=== PATIENT | female | born 1930 | race Caucasian/White ===

== ENCOUNTER 2019-05-14 18:19 | Inpatient (IN) | payer MEDICARE ==
[2019-05-14 19:41] LABS: #Basophils 0.1 thou/uL (0.0-0.2); #Eosinphils 0.3 thou/uL (0.0-0.7); #Lymphocytes 1.3 thou/uL (1.20-3.40); #Monocytes 0.4 thou/uL (0.11-0.59); #Neutrophils 3.2 thou/uL (1.40-6.50); %Eosinophils 6.1 % (0.0-10.0); %Lymphocytes 24.4 % (21.0-51.0); %Neutrophils 60.6 % (42.0-75.0); Hemoglobin 10.4 g/dL (12.0-16.0); Mean Corpuscular HGB CONC 32.6 g/dL (32.0-36.0); Mean Corpuscular Volume 92.1 fL (78.0-98.0); Platelet Count 272 thou/uL (130-400); RBC Distribution Width 13.6 % (11.5-14.5); Red Blood Cell (RBC) Count 3.47 mill/uL (4.20-5.40); White Blood Cell (WBC) Count 5.2 thou/uL (4.8-10.8)
[2019-05-14 19:56] LABS: ALT (SGPT) 15 U/L (8-55); AST (SGOT) 17 U/L (5-34); Albumin 3.3 g/dL (3.4-4.8); Alkaline Phosphatase 57 U/L (40-110); Anion Gap 14 mmol/L (10-20); BUN (Urea Nitrogen) 11 mg/dL (9.8-20.1); Bilirubin, Total 0.5 mg/dL (0.2-1.2); Calc. Creatinine Clearance 0 mL/min (70-130); Calcium 8.9 mg/dL (7.8-10.44); Carbon Dioxide 24 mmol/L (23-31); Chloride 109 mmol/L (98-107); Estimated GFR-MDRD 66; Globulin 2.3 g/dL (2.4-3.5); Glucose 144 mg/dL (83-110); Potassium 3.8 mmol/L (3.5-5.1); Protein, Total 5.6 g/dL (6.0-8.3); Sodium 143 mmol/L (136-145)
[2019-05-14] MEDS: Sodium Chloride 0.9% 10 ML ONE (20:55)
[2019-05-14] MEDS: Famotidine 20 MG TAB PO SCH (20:56)
[2019-05-14] MEDS: Gabapentin 100 MG CAP PO SCH (20:56)
[2019-05-14] MEDS: Atorvastatin Calcium 40 MG TAB PO SCH (20:56)
[2019-05-14] MEDS: Vancomycin HCl 1 GM in Sodium Chloride 0.9% 250 ML 250 ML IVPB SCH (20:56)
[2019-05-14] MEDS: Enoxaparin Sodium 30 MG/0.3 ML SYRINGE SC SCH (20:58)
[2019-05-14] MEDS ORDERED: rOPINIRole HCl 0.5 MG TAB PO SCH (21:00)
[2019-05-14] MEDS ORDERED: PARoxetine 20 MG TAB PO SCH (21:00)
--- NOTE | 2019-05-14 21:01 | HP ---
HISTORY OF PRESENT ILLNESS: The patient is a very pleasant 89-year-old white female, who has recently been discharged from [facility] and then [facility] after a diagnosis of endocarditis with aortic vegetations in a patient with methicillin-resistant Staph bacteremia. She has been started on vancomycin 1 g IV daily and has been continuing this at the acute care hospital and the rehab, but now is unable to maintain any antibiotics at home and is admitted to the [facility] to continue her IV vancomycin. She has underlying comorbidities of mild dementia and coronary artery disease, status post coronary angioplasty with a chronic left bundle branch block. However, she has only minimal decreased ejection fraction of 45% with no evidence of decompensated congestive heart failure. She has had a recent urinary tract infection and sepsis syndrome when the MRSA bacteremia was found. She has been cooperating with therapy and has been getting stronger, but her dementia has somewhat limited her improvement. MEDICATIONS: At this time include; 1. Atorvastatin 40 mg daily. 2. Clopidogrel 75 daily. 3. Depakote 500 mg daily. 4. Donepezil 5 mg daily. 5. Lovenox 30 mg subcu daily. 6. Florastor 250 mg daily. 7. Spironolactone 25 mg daily. 8. Trazodone 50 mg nightly. 9. Vancomycin 1 g IV piggyback nightly. ALLERGIES: SHE HAS A HISTORY OF PENICILLIN AND SULFA ALLERGIES. SOCIAL HISTORY: She lives with her daughter and granddaughter. She is a nonsmoker, nondrinker. REVIEW OF SYSTEMS: HEENT: She denies headaches, dizziness, change in vision or hearing, hoarseness, or dysphagia. PULMONARY: She denies cough, sputum production, pneumonia, asthma, or tuberculosis. CARDIOVASCULAR: She denies chest pain, orthopnea, paroxysmal nocturnal dyspnea, or edema. GASTROINTESTINAL: She denies nausea, vomiting, diarrhea, constipation, or abdominal pain, but did apparently have some diarrhea earlier today. GENITOURINARY: She has had some dysuria in the past, but none recently. She has above-mentioned recent urinary tract infection. She is incontinent of urine. MUSCULOSKELETAL: She denies pain or stiffness in her back, arms, and legs. NEUROLOGIC: She denies localized numbness or weakness in arms or extremities. PHYSICAL EXAMINATION: GENERAL: The patient is an elderly white female, lying in bed, eating supper, alert and oriented to person, place, and time and in no distress. VITAL SIGNS: Showed to have a temperature 97.9; pulse 51; respirations 18; O2 saturations 96% on room air; blood pressure 189/77, and decreased to 160/68 later. HEENT: Pupils are equal, round, reactive to light and accommodation. Sclerae anicteric. Conjunctivae pale. Oral mucous membranes are well hydrated. NECK: Supple. No nodes or masses. JVP is not elevated. LUNGS: Clear. CARDIAC: Showed regular rhythm. ABDOMEN: Soft and nontender. SKIN/EXTREMITIES: Show no edema, clubbing, or cyanosis. NEUROLOGIC: Shows no focal findings. LABORATORY DATA: Still pending. ASSESSMENT: 1. The patient is 89-year-old white female with history of coronary artery disease, status post coronary artery angioplasty with chronic left bundle branch block and significant bradycardia in the 40s and 50s, but with no symptoms and no indication for pacemaker because of this. 2. 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 Monitoring renal function until the full 6-week course was given, the date to be determined. 3. Mild dementia, worsened recently with inability of family to care for the patient at this time on donepezil. 4. New onset of diarrhea and we will check for Clostridium difficile. 5. Dementia, on donepezil and we will evaluate the long-term placement if can request. Job ID: [id number]
[2019-05-14] MEDS: traZODone HCl 50 MG TAB PO SCH (21:03)
[2019-05-15] MEDS: Saccharomyces boulardii 250 MG CAP PO SCH (08:11)
[2019-05-15] MEDS: PARoxetine 20 MG TAB PO SCH (08:12)
[2019-05-15] MEDS: Clopidogrel Bisulfate 75 MG TAB PO SCH (08:12)
[2019-05-15] MEDS: Spironolactone 25 MG TAB PO SCH (08:13)
[2019-05-15] MEDS: Gabapentin 100 MG CAP PO SCH ×3 (08:13→20:58)
[2019-05-15] MEDS: Loratadine 10 MG TAB PO SCH (08:13)
[2019-05-15] MEDS: Famotidine 20 MG TAB PO SCH ×2 (08:13→20:58)
[2019-05-15] MEDS ORDERED: DIVALPROEX SODIUM 500 MG PO SCH (09:00)
[2019-05-15] MEDS ORDERED: traZODone HCl 50 MG TAB PO SCH (09:00)
[2019-05-15] MEDS ORDERED: DONEPEZIL HCL 23 MG PO SCH (09:00)
[2019-05-15] MEDS ORDERED: Lisinopril 10 MG TAB PO SCH (11:45)
[2019-05-15] MEDS: Vancomycin HCl 1 GM in Sodium Chloride 0.9% 250 ML 250 ML IVPB SCH (20:55)
[2019-05-15] MEDS: Sodium Chloride 0.9% 10 ML ONE (20:56)
[2019-05-15] MEDS: Enoxaparin Sodium 30 MG/0.3 ML SYRINGE SC SCH (20:56)
[2019-05-15] MEDS: traZODone HCl 50 MG TAB PO SCH (20:57)
[2019-05-15] MEDS: Atorvastatin Calcium 40 MG TAB PO SCH (20:57)
[2019-05-15] MEDS ORDERED: Prevnar 13-Val Conj/PF 0.5 ML SYRINGE IM ONE (21:00)
[2019-05-15] MEDS ORDERED: FLU VACC QS2019-20(6MOS UP)/PF 60 MCG/0.5 ML SYRINGE IM ONE (21:00)
[2019-05-16] MEDS ORDERED: Lisinopril 10 MG TAB PO SCH ×2 (09:00→21:00)
[2019-05-16] MEDS: Famotidine 20 MG TAB PO SCH ×2 (10:06→21:39)
[2019-05-16] MEDS: PARoxetine 20 MG TAB PO SCH (10:06)
[2019-05-16] MEDS: Saccharomyces boulardii 250 MG CAP PO SCH (10:07)
[2019-05-16] MEDS: Gabapentin 100 MG CAP PO SCH ×3 (10:07→21:39)
[2019-05-16] MEDS: Loratadine 10 MG TAB PO SCH (10:07)
[2019-05-16] MEDS: Spironolactone 25 MG TAB PO SCH (10:07)
[2019-05-16] MEDS: Clopidogrel Bisulfate 75 MG TAB PO SCH (10:07)
[2019-05-16 20:49] LABS: Vancomycin, Trough 11.2 ug/mL
[2019-05-16] MEDS: Vancomycin HCl 1 GM in Sodium Chloride 0.9% 250 ML 250 ML IVPB SCH (21:35)
[2019-05-16] MEDS: Atorvastatin Calcium 40 MG TAB PO SCH (21:39)
[2019-05-16] MEDS: traZODone HCl 50 MG TAB PO SCH (21:40)
[2019-05-16] MEDS: Enoxaparin Sodium 30 MG/0.3 ML SYRINGE SC SCH (21:40)
[2019-05-17] MEDS: Famotidine 20 MG TAB PO SCH ×2 (08:07→20:11)
[2019-05-17] MEDS: Saccharomyces boulardii 250 MG CAP PO SCH (08:07)
[2019-05-17] MEDS: Clopidogrel Bisulfate 75 MG TAB PO SCH (08:07)
[2019-05-17] MEDS: Spironolactone 25 MG TAB PO SCH (08:07)
[2019-05-17] MEDS: Lisinopril 10 MG TAB PO SCH (08:08)
[2019-05-17] MEDS: Gabapentin 100 MG CAP PO SCH ×3 (08:09→20:12)
[2019-05-17] MEDS: PARoxetine 20 MG TAB PO SCH (08:09)
[2019-05-17] MEDS: Loratadine 10 MG TAB PO SCH (08:09)
--- NOTE | 2019-05-17 08:37 | PRG ---
DATE OF SERVICE: 05/15/2019 SUBJECTIVE: The patient feels well. No complaints, walking in the [place], having some shortness of breath with exercise, but no chest pain or palpitations. LABORATORIES: Done yesterday reveal sodium 1.3, potassium 3.8, chloride 109, bicarb 24, BUN 11, creatinine 0.62, glucose , protein 5.6, albumin 3.3, globulin 2.3. White count 5200, hematocrit 31 hemoglobin 10. OBJECTIVE: VITAL SIGNS: Shows her temperature is 97.8 pulse 51, respirations 18, O2 sats 94% on room air, blood pressure 171/71. LUNGS: Clear. CARDIAC: Shows regular rhythm. ABDOMEN: Soft and nontender. ASSESSMENT: 1. 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 Vancomycin 1 g daily with weekly vancomycin trough levels. Appears to be stable with no evidence of decompensated congestive heart failure. 2. Persistent significant bradycardia in the 40s and 50s, but with no symptoms and monitor closely. 3. Diarrhea appears to have resolved and Clostridium difficile has been negative as it was note done as this was a formed stool at the time it was done. 4. Deconditioning, improving daily and walking with therapy, but the family states that they still feel they cannot care for her because of her dementia. 5. Dementia appears to be and we will discuss custodial placement with family and with [facility]. Job ID: [id number]
--- NOTE | 2019-05-17 08:44 | PRG ---
DATE OF SERVICE: 05/16/2019 SUBJECTIVE: The patient feels well and walking with therapy. Has no complaints of shortness of breath, chest pain or palpitations. OBJECTIVE: VITAL SIGNS: Shows blood pressure is elevated somewhat to 173/72, pulse is stable at 51, temperature is 96.3, pulse is 80. LUNGS: Clear. CARDIAC: Shows regular rhythm. ABDOMEN: Soft and nontender. No masses or organomegaly. SKIN/EXTREMITIES: Show no edema, clubbing, cyanosis. LABORATORY DATA: Vancomycin trough level has returned subtherapeutic at 11.2 with a range of 15-25 daily. ASSESSMENT: 1. Staphylococcus endocarditis, on vancomycin with subtherapeutic level. We will increase to 1.25 g daily. 2. Hypertension labile, but not controlled and we will increase lisinopril to 20 mg daily tomorrow and give extra dose of lisinopril 10 mg at night. 3. Dementia stable. Cooperating with therapy. 4. Deconditioning, improving with therapy and we will continue. PLAN: 1. Increase vancomycin to 1.25 daily. 2. Increase lisinopril to 20 daily. 3. Continue PT/OT. 4. Continue to monitor bradycardia for symptoms. Job ID: [id number]
--- NOTE | 2019-05-17 09:27 | PRG ---
DATE OF SERVICE: 05/17/2019 SUBJECTIVE: The patient feels well, lying in bed, resting with no shortness of breath. Chest pain has been cooperating with therapy. OBJECTIVE: VITAL SIGNS: Temperature 97.6, pulse 50, respirations 16, O2 sats 94% on room air, blood pressure 147/65. LUNGS: Clear. CARDIAC: Regular rhythm. ABDOMEN: Soft, nontender. SKIN/EXTREMITIES: No edema, clubbing, or cyanosis. ASSESSMENT: 1. Staph endocarditis, on subtherapeutic vancomycin 1 g daily, recently increased to 1.25 g daily. 2. Hypertension, labile, controlled, but improved today, on increased lisinopril to 20 mg daily. We will continue to monitor. 3. Deconditioning, cooperating well with PT and improving daily. 4. Asymptomatic bradycardia. We will monitor for symptoms. Job ID: [id number]
[2019-05-17] MEDS: Enoxaparin Sodium 30 MG/0.3 ML SYRINGE SC SCH (20:11)
[2019-05-17] MEDS: Atorvastatin Calcium 40 MG TAB PO SCH (20:11)
[2019-05-17] MEDS: traZODone HCl 50 MG TAB PO SCH (20:12)
[2019-05-17] MEDS: Vancomycin HCl 750 MG in Sodium Chloride 0.9% 250 ML 250 ML IVPB SCH (20:43)
[2019-05-17] MEDS: Vancomycin HCl 500 MG in Sodium Chloride 0.9% 100 ML IVPB SCH (20:44)
[2019-05-18] MEDS: Saccharomyces boulardii 250 MG CAP PO SCH (08:04)
[2019-05-18] MEDS: Famotidine 20 MG TAB PO SCH ×2 (08:04→22:06)
[2019-05-18] MEDS: Spironolactone 25 MG TAB PO SCH (08:05)
[2019-05-18] MEDS: PARoxetine 20 MG TAB PO SCH (08:05)
[2019-05-18] MEDS: Loratadine 10 MG TAB PO SCH (08:05)
[2019-05-18] MEDS: Lisinopril 10 MG TAB PO SCH (08:06)
[2019-05-18] MEDS: Gabapentin 100 MG CAP PO SCH ×3 (08:06→22:06)
[2019-05-18] MEDS: Clopidogrel Bisulfate 75 MG TAB PO SCH (09:10)
[2019-05-18] MEDS: Enoxaparin Sodium 30 MG/0.3 ML SYRINGE SC SCH (22:06)
[2019-05-18] MEDS: Atorvastatin Calcium 40 MG TAB PO SCH (22:06)
[2019-05-18] MEDS: traZODone HCl 50 MG TAB PO SCH (22:06)
[2019-05-18] MEDS: Vancomycin HCl 500 MG in Sodium Chloride 0.9% 100 ML IVPB SCH (22:08)
[2019-05-18] MEDS: Vancomycin HCl 750 MG in Sodium Chloride 0.9% 250 ML 250 ML IVPB SCH (22:08)
[2019-05-19 07:21] LABS: #Basophils 0.1 thou/uL (0.0-0.2); #Eosinphils 0.4 thou/uL (0.0-0.7); #Lymphocytes 1.4 thou/uL (1.20-3.40); #Monocytes 0.4 thou/uL (0.11-0.59); #Neutrophils 2.4 thou/uL (1.40-6.50); %Basophils 2.2 % (0.0-1.0); %Eosinophils 8.2 % (0.0-10.0); %Lymphocytes 29.7 % (21.0-51.0); %Monocytes 8.7 % (0.0-10.0); %Neutrophils 51.2 % (42.0-75.0); Hemoglobin 9.7 g/dL (12.0-16.0); Mean Corpuscular HGB CONC 30.7 g/dL (32.0-36.0); Mean Corpuscular Hemoglobin 29.6 pg (27.0-31.0); Mean Corpuscular Volume 96.4 fL (78.0-98.0); Mean Platelet Volume 6.5 fL (7.4-10.4); Platelet Count 290 thou/uL (130-400); RBC Distribution Width 13.7 % (11.5-14.5); Red Blood Cell (RBC) Count 3.27 mill/uL (4.20-5.40); White Blood Cell (WBC) Count 4.7 thou/uL (4.8-10.8)
[2019-05-19 07:35] LABS: ALT (SGPT) 8 U/L (8-55); AST (SGOT) 13 U/L (5-34); Albumin 3.2 g/dL (3.4-4.8); Alkaline Phosphatase 48 U/L (40-110); Anion Gap 13 mmol/L (10-20); BUN (Urea Nitrogen) 15 mg/dL (9.8-20.1); Bilirubin, Total 0.4 mg/dL (0.2-1.2); Calc. Creatinine Clearance 47 mL/min (70-130); Calcium 8.3 mg/dL (7.8-10.44); Carbon Dioxide 20 mmol/L (23-31); Chloride 112 mmol/L (98-107); Estimated GFR-MDRD 70; Globulin 2.2 g/dL (2.4-3.5); Glucose 87 mg/dL (83-110); Potassium 4.1 mmol/L (3.5-5.1); Protein, Total 5.4 g/dL (6.0-8.3); Sodium 141 mmol/L (136-145)
--- NOTE | 2019-05-19 08:33 | PRG ---
DATE OF SERVICE: 05/18/2019 SUBJECTIVE: The patient lying in the bed, resting. No complaints. She has had a nice weekend with no shortness of breath, chest pain, and has had no increased confusion, at stable mild dementia. OBJECTIVE: Shows temperature is 97.2, pulse 64, respirations 20, O2 sats 96% on room air, blood pressure is 189/76, but was 136/69 previously and had been variable with increase in the afternoon the last several days. She is on lisinopril 20 mg in the morning only and we will add amlodipine to this every morning also. ASSESSMENT: 1. Staph endocarditis with aortic valve vegetations, doing well on vancomycin with last level subtherapeutic with new level pending tomorrow after increased dose. 2. Hypertension with persistent p.m. high elevation. We will add amlodipine 5 mg every morning. 3. Mild dementia, which appears to be stable, not limiting therapy and cooperating well with nurses. 4. Deconditioning, improving. 5. Bradycardia appears to be stable in the 50s and asymptomatic. We will continue to monitor. Job ID: [id number]
--- NOTE | 2019-05-19 08:51 | PRG ---
DATE OF SERVICE: 05/19/2019 SUBJECTIVE: The patient feels well. No complaints. Slept well through the night, cooperating well with therapy. No shortness of breath or chest pain. OBJECTIVE: Shows her blood pressure is still elevated at 189/76, but is being started on amlodipine this morning. Temperature is 97, pulse 64, respirations 20, O2 sats 96% on room air. LABORATORY DATA: Laboratory this morning showed a white count of 4,700, hematocrit 31, hemoglobin 9. Chemistries are pending. Lungs are clear. Cardiac examination shows regular rhythm. Vancomycin trough is pending this afternoon. ASSESSMENT: 1. Resolving methicillin-resistant Staph endocarditis with vegetations on aortic valve with no evidence of decompensation, but with subtherapeutic vancomycin level being repeated today. 2. Stable dementia. 3. Mild deconditioning, improving daily. PLAN: 1. Continue PT, OT. 2. Continue vancomycin 750 mg daily and check trough today. 3. Add amlodipine 5 mg this morning and monitor blood pressure closely. Job ID: [id number]
[2019-05-19] MEDS: PARoxetine 20 MG TAB PO SCH (09:10)
[2019-05-19] MEDS: Saccharomyces boulardii 250 MG CAP PO SCH (09:10)
[2019-05-19] MEDS: Spironolactone 25 MG TAB PO SCH (09:10)
[2019-05-19] MEDS: Lisinopril 10 MG TAB PO SCH (09:11)
[2019-05-19] MEDS: Famotidine 20 MG TAB PO SCH ×2 (09:13→21:10)
[2019-05-19] MEDS: Loratadine 10 MG TAB PO SCH (09:13)
[2019-05-19] MEDS: Amlodipine 5 MG TAB PO SCH (09:14)
[2019-05-19] MEDS: Gabapentin 100 MG CAP PO SCH ×3 (09:16→21:09)
[2019-05-19] MEDS: Clopidogrel Bisulfate 75 MG TAB PO SCH (09:16)
[2019-05-19] MEDS ORDERED: Amlodipine 5 MG TAB PO SCH (16:00)
[2019-05-19] MEDS: traZODone HCl 50 MG TAB PO SCH (21:09)
[2019-05-19] MEDS: Atorvastatin Calcium 40 MG TAB PO SCH (21:09)
[2019-05-19] MEDS: Vancomycin HCl 750 MG in Sodium Chloride 0.9% 250 ML 250 ML IVPB SCH (21:11)
[2019-05-19] MEDS: Enoxaparin Sodium 30 MG/0.3 ML SYRINGE SC SCH (21:11)
[2019-05-19] MEDS: Vancomycin HCl 500 MG in Sodium Chloride 0.9% 100 ML IVPB SCH (21:11)
[2019-05-20] MEDS: Saccharomyces boulardii 250 MG CAP PO SCH (09:47)
[2019-05-20] MEDS: Famotidine 20 MG TAB PO SCH ×2 (09:47→20:49)
[2019-05-20] MEDS: Clopidogrel Bisulfate 75 MG TAB PO SCH (09:47)
[2019-05-20] MEDS: Gabapentin 100 MG CAP PO SCH ×3 (09:47→20:49)
[2019-05-20] MEDS: Lisinopril 10 MG TAB PO SCH (09:47)
[2019-05-20] MEDS: PARoxetine 20 MG TAB PO SCH (09:47)
[2019-05-20] MEDS: Spironolactone 25 MG TAB PO SCH (09:48)
[2019-05-20] MEDS: Loratadine 10 MG TAB PO SCH (09:48)
[2019-05-20] MEDS: Amlodipine 5 MG TAB PO SCH (09:48)
[2019-05-20] MEDS: traZODone HCl 50 MG TAB PO SCH (20:49)
[2019-05-20] MEDS: Atorvastatin Calcium 40 MG TAB PO SCH (20:49)
[2019-05-20] MEDS: Vancomycin HCl 1 GM in Sodium Chloride 0.9% 250 ML 250 ML IVPB SCH (20:51)
[2019-05-20] MEDS: Enoxaparin Sodium 30 MG/0.3 ML SYRINGE SC SCH (20:51)
[2019-05-21] MEDS: Famotidine 20 MG TAB PO SCH ×2 (08:25→20:30)
[2019-05-21] MEDS: Saccharomyces boulardii 250 MG CAP PO SCH (08:28)
[2019-05-21] MEDS: Clopidogrel Bisulfate 75 MG TAB PO SCH (08:29)
[2019-05-21] MEDS: Loratadine 10 MG TAB PO SCH (08:29)
[2019-05-21] MEDS: PARoxetine 20 MG TAB PO SCH (08:29)
[2019-05-21] MEDS: Lisinopril 10 MG TAB PO SCH (08:30)
[2019-05-21] MEDS: Gabapentin 100 MG CAP PO SCH ×3 (08:30→20:31)
[2019-05-21] MEDS: Amlodipine 5 MG TAB PO SCH (08:30)
[2019-05-21] MEDS: Spironolactone 25 MG TAB PO SCH (14:21)
--- NOTE | 2019-05-21 18:59 | PRG ---
DATE OF SERVICE: 05/20/2019 SUBJECTIVE: The patient feels well, cooperating with therapy. No shortness of breath or chest pain. OBJECTIVE: VITAL SIGNS: Blood pressure is improved on increased dose of lisinopril. CARDIAC: Showed regular rhythm. SKIN/EXTREMITIES: Show no edema, clubbing, or cyanosis. ASSESSMENT: 1. Resolving methicillin-resistant Staphylococcus aureus bacteremia, but with persistent subtherapeutic trough level of 13. 2. Hypertension, improved control. 3. Stable dementia. PLAN: 1. Increase vancomycin to 1 g daily and repeat trough level in 2 days. 2. Continue lisinopril 20 daily, appears to be well controlled. 3. Discuss discharge planning with family and case management. Job ID: [id number]
[2019-05-21 20:15] LABS: Vancomycin, Trough 12.6 ug/mL
[2019-05-21] MEDS: Atorvastatin Calcium 40 MG TAB PO SCH (20:30)
[2019-05-21] MEDS: Enoxaparin Sodium 30 MG/0.3 ML SYRINGE SC SCH (20:30)
[2019-05-21] MEDS: traZODone HCl 50 MG TAB PO SCH (20:31)
[2019-05-21] MEDS ORDERED: Vancomycin HCl 500 MG in Sodium Chloride 0.9% 100 ML IVPB SCH (21:00)
[2019-05-21] MEDS: Vancomycin HCl 1 GM in Sodium Chloride 0.9% 250 ML 250 ML IVPB SCH (21:22)
--- NOTE | 2019-05-22 06:26 | PRG ---
DATE OF SERVICE: 05/21/2019 SUBJECTIVE: The patient feels well, sitting up in bed, working with therapy, having no complaints of headache, shortness of breath, chest pain. On lisinopril 20 mg daily and amlodipine 5 mg daily. Vancomycin trough level has returned persistently subtherapeutic at 12.6 tonight despite increasing dose to 1 g daily. OBJECTIVE: VITAL SIGNS: Temperature is 96.2, pulse 54, respirations 18, O2 saturations 95% on room air, blood pressure is 142/66, up to 173/75. LUNGS: Clear. CARDIAC: Regular rhythm. ABDOMEN: Soft and nontender. SKIN/EXTREMITIES: No edema. ASSESSMENT: 1. Endocarditis secondary to methicillin-resistant Staph, on vancomycin 1 g daily with still subtherapeutic trough levels and will increase to 750 mg twice daily. 2. Hypertension with persistent labile control despite increasing lisinopril to 20 daily, and we will increase amlodipine to 10 mg daily. 3. Discharge planning underway. This will be discussed with the family and refer them to [facility]. Job ID: [id number]
[2019-05-22] MEDS ORDERED: Vancomycin HCl 1 GM in Sodium Chloride 0.9% 250 ML 250 ML IVPB SCH (09:00)
[2019-05-22] MEDS ORDERED: Vancomycin HCl 750 GM in Sodium Chloride 0.9% 250 ML 250 ML IVPB SCH (09:00)
[2019-05-22] MEDS ORDERED: Vancomycin HCl 500 MG in Sodium Chloride 0.9% 100 ML IVPB SCH (09:00)
[2019-05-22] MEDS: Saccharomyces boulardii 250 MG CAP PO SCH (09:05)
[2019-05-22] MEDS: Clopidogrel Bisulfate 75 MG TAB PO SCH (09:05)
[2019-05-22] MEDS: Gabapentin 100 MG CAP PO SCH ×3 (09:05→21:07)
[2019-05-22] MEDS: Famotidine 20 MG TAB PO SCH ×2 (09:05→21:07)
[2019-05-22] MEDS: Spironolactone 25 MG TAB PO SCH (09:06)
[2019-05-22] MEDS: Amlodipine 5 MG TAB PO SCH (09:06)
[2019-05-22] MEDS: Lisinopril 20 MG TAB PO SCH (09:06)
[2019-05-22] MEDS: Loratadine 10 MG TAB PO SCH (09:06)
[2019-05-22] MEDS: PARoxetine 20 MG TAB PO SCH (09:11)
[2019-05-22] MEDS: Vancomycin HCl 750 MG in Sodium Chloride 0.9% 250 ML 250 ML IVPB SCH ×2 (10:51→21:08)
--- NOTE | 2019-05-22 18:05 | PRG ---
DATE OF SERVICE: 05/22/2019 SUBJECTIVE: The patient feels well, sitting up, eating supper, has worked well with therapy, feels she is getting much stronger. She is denying any chest pain or shortness of breath. She has been on IV vancomycin for the last several weeks for Staph endocarditis, but stop date was not completely confirmed and we will attempt to obtain records from [facility] to determine how long to treat. OBJECTIVE: GENERAL: Her vancomycin level is still subtherapeutic this morning despite having her vancomycin increased from 500 mg daily to daily and now has been increased to 750 twice daily. VITAL SIGNS: Her blood pressure is markedly improved on increased medication with persistent bradycardia at 54 to 62, but blood pressure 125/81 to 136/63. LUNGS: Clear. CARDIAC: Regular rhythm. ABDOMEN: Soft and nontender with no masses or organomegaly. ASSESSMENT: 1. Resolving methicillin-resistant Staph bacteremia and endocarditis with aortic vegetations, on vancomycin now with increased dose to 750 twice daily. 2. Hypertension with improved control, on lisinopril 20 daily and amlodipine 10 daily. 3. Discharge planning to [facility] underway. PLAN: 1. Continue vancomycin 750 twice daily and check trough level in 2 days. 2. Determine end-stage for 6 to 8 weeks of IV vancomycin from admission to [facility] approximately 26 of April and we will determine end date. Job ID: [id number]
[2019-05-22] MEDS: traZODone HCl 50 MG TAB PO SCH (21:07)
[2019-05-22] MEDS: Enoxaparin Sodium 30 MG/0.3 ML SYRINGE SC SCH (21:07)
[2019-05-22] MEDS: Atorvastatin Calcium 40 MG TAB PO SCH (21:07)
[2019-05-23] MEDS: Amlodipine 5 MG TAB PO SCH (05:14)
[2019-05-23] MEDS ORDERED: Vancomycin HCl 750 MG VIAL ONE (08:20)
[2019-05-23] MEDS: Spironolactone 25 MG TAB PO SCH (09:20)
[2019-05-23] MEDS: Famotidine 20 MG TAB PO SCH ×2 (09:20→21:19)
[2019-05-23] MEDS: Clopidogrel Bisulfate 75 MG TAB PO SCH (09:21)
[2019-05-23] MEDS: Loratadine 10 MG TAB PO SCH (09:22)
[2019-05-23] MEDS: Lisinopril 20 MG TAB PO SCH (09:22)
[2019-05-23] MEDS: Saccharomyces boulardii 250 MG CAP PO SCH (09:23)
[2019-05-23] MEDS: Gabapentin 100 MG CAP PO SCH ×3 (09:23→21:19)
[2019-05-23] MEDS: PARoxetine 20 MG TAB PO SCH (09:23)
[2019-05-23] MEDS: Vancomycin HCl 750 MG in Sodium Chloride 0.9% 250 ML 250 ML IVPB SCH ×2 (10:27→21:18)
[2019-05-23] MEDS ORDERED: diphenhydrAMINE 25 MG CAP PO SCH (12:00)
[2019-05-23] MEDS: Sodium Chloride 0.9% 10 ML ONE ×2 (12:27→21:18)
[2019-05-23 19:48] LABS: Vancomycin, Trough 22.3 ug/mL
[2019-05-23] MEDS: Atorvastatin Calcium 40 MG TAB PO SCH (21:19)
[2019-05-23] MEDS: Enoxaparin Sodium 30 MG/0.3 ML SYRINGE SC SCH (21:19)
[2019-05-23] MEDS: traZODone HCl 50 MG TAB PO SCH (21:19)
[2019-05-24] MEDS: Amlodipine 5 MG TAB PO SCH (05:43)
[2019-05-24] MEDS: Spironolactone 25 MG TAB PO SCH (09:01)
[2019-05-24] MEDS: PARoxetine 20 MG TAB PO SCH (09:01)
[2019-05-24] MEDS: Loratadine 10 MG TAB PO SCH (09:01)
[2019-05-24] MEDS: Lisinopril 20 MG TAB PO SCH (09:01)
[2019-05-24] MEDS: Saccharomyces boulardii 250 MG CAP PO SCH (09:01)
[2019-05-24] MEDS: Clopidogrel Bisulfate 75 MG TAB PO SCH (09:01)
[2019-05-24] MEDS: Gabapentin 100 MG CAP PO SCH ×3 (09:01→20:35)
[2019-05-24] MEDS: Famotidine 20 MG TAB PO SCH ×2 (09:01→20:34)
[2019-05-24] MEDS: Vancomycin HCl 750 MG in Sodium Chloride 0.9% 250 ML 250 ML IVPB SCH ×2 (09:02→20:33)
--- NOTE | 2019-05-24 15:36 | PRG ---
DATE OF SERVICE: 05/24/2019 SUBJECTIVE: Ms. Morrison is resting in bed. Denies any complaints. Discussed with nursing. She apparently is having issues with constipation and would like a stool softener. She is tolerating her antibiotics. OBJECTIVE: VITAL SIGNS: She is afebrile. Heart rate 54, respirations 18, oxygen saturation 98% on room air, blood pressure 129/63. CARDIOVASCULAR: S1 and S2 plus. RESPIRATORY: Normal vesicular breath sounds. ABDOMEN: Soft, nontender. Bowel sounds heard in all quadrants. EXTREMITIES: Without cyanosis or clubbing. IMPRESSION: 1. Endocarditis with methicillin-resistant Staphylococcus aureus. 2. Dyslipidemia. 3. Dementia. 4. Coronary artery disease. 5. Chronic systolic congestive heart failure and constipation. PLAN: 1. Continue current medications. 2. Add Colace 100 mg b.i.d. 3. Continue IV antibiotics. 4. Heart-healthy diet. 5. DVT prophylaxis with PlexiPulse. 6. Decubitus precaution. 7. Stress ulcer prophylaxis. 8. Weekly laboratory values. 9. Physical therapy and occupational therapy. Job ID: [id number]
[2019-05-24] MEDS: Sodium Chloride 0.9% 10 ML ONE (20:33)
[2019-05-24] MEDS: Atorvastatin Calcium 40 MG TAB PO SCH (20:34)
[2019-05-24] MEDS: diphenhydrAMINE 25 MG CAP PO SCH (20:34)
[2019-05-24] MEDS: Enoxaparin Sodium 30 MG/0.3 ML SYRINGE SC SCH (20:34)
[2019-05-24] MEDS: Docusate 100 MG CAP PO SCH (20:35)
[2019-05-24] MEDS: traZODone HCl 50 MG TAB PO SCH (20:35)
[2019-05-25] MEDS: Amlodipine 5 MG TAB PO SCH (05:41)
[2019-05-25] MEDS: Famotidine 20 MG TAB PO SCH ×2 (08:29→21:07)
[2019-05-25] MEDS: PARoxetine 20 MG TAB PO SCH (08:29)
[2019-05-25] MEDS: Docusate 100 MG CAP PO SCH ×2 (08:29→21:07)
[2019-05-25] MEDS: Lisinopril 20 MG TAB PO SCH (08:29)
[2019-05-25] MEDS: Clopidogrel Bisulfate 75 MG TAB PO SCH (08:29)
[2019-05-25] MEDS: Saccharomyces boulardii 250 MG CAP PO SCH (08:29)
[2019-05-25] MEDS: Spironolactone 25 MG TAB PO SCH (08:29)
[2019-05-25] MEDS: Vancomycin HCl 750 MG in Sodium Chloride 0.9% 250 ML 250 ML IVPB SCH ×2 (08:30→21:07)
[2019-05-25] MEDS: Gabapentin 100 MG CAP PO SCH ×3 (08:30→21:08)
[2019-05-25] MEDS: Loratadine 10 MG TAB PO SCH (08:30)
[2019-05-25] MEDS: Sodium Chloride 0.9% 10 ML ONE ×2 (08:30→21:06)
--- NOTE | 2019-05-25 10:06 | PRG ---
DATE OF SERVICE: 05/23/2019 SUBJECTIVE: The patient feels well except for recurrent pruritus with no rash. She is having no shortness of breath or chest pain. She has had no recent change in medications. OBJECTIVE: VITAL SIGNS: Blood pressure 147/68, pulse 65, respirations 19, O2 saturation is 93% on room air. LUNGS: Clear. CARDIAC: Regular rhythm. Vancomycin trough level is increased to 22, which is in therapeutic range for endocarditis. ASSESSMENT: 1. Resolving methicillin-resistant Staphylococcus aureus bacteremia and endocarditis, on therapeutic vancomycin dose this time at 0750 twice daily. 2. New onset of pruritus with no known etiology with no rash. 3. Mild dementia with family evaluating for admission to the shelter. 4. Coronary disease asymptomatic. PLAN: 1. Continue vancomycin and check trough next week. 2. Stressed with family need to arrange discharge. 3. Start Benadryl 25 mg nightly for pruritus. Job ID: [id number]
--- NOTE | 2019-05-25 15:46 | PRG ---
DATE OF SERVICE: 05/25/2019 SUBJECTIVE: Ms. Morrison is doing well. Resting in bed. Tolerating her antibiotics. No family at bedside. Discussed with Nursing. OBJECTIVE: VITAL SIGNS: She is afebrile, heart rate 64, respirations 18, oxygen saturation 96% on room air, blood pressure 144/68. CARDIOVASCULAR SYSTEM: S1-S2 plus. RESPIRATORY SYSTEM: Normal vesicular breath sounds. ABDOMEN: Soft. Nontender. Bowel sounds heard in all quadrants. EXTREMITIES: Without cyanosis or clubbing. CENTRAL NERVOUS SYSTEM: Improving deconditioning. IMPRESSION: 1. MRSA bacteremia. 2. Dementia. 3. Dyslipidemia. 4. Coronary artery disease. 5. Chronic systolic congestive heart failure. 6. Constipation. PLAN: 1. Continue current medications including antibiotics. 2. Bowel regimen. 3. Heart healthy diet. 4. DVT prophylaxis with PlexiPulses. 5. Decubitus precautions. 6. Stress ulcer prophylaxis. 7. Physical therapy. 8. Dr. Elvin becker. Job ID: [id number]
[2019-05-25 20:34] LABS: Vancomycin, Trough 20.6 ug/mL
[2019-05-25] MEDS: Enoxaparin Sodium 30 MG/0.3 ML SYRINGE SC SCH (21:07)
[2019-05-25] MEDS: traZODone HCl 50 MG TAB PO SCH (21:07)
[2019-05-25] MEDS: Atorvastatin Calcium 40 MG TAB PO SCH (21:07)
[2019-05-25] MEDS: diphenhydrAMINE 25 MG CAP PO SCH (21:08)
[2019-05-26] MEDS: Amlodipine 5 MG TAB PO SCH (06:05)
[2019-05-26] MEDS ORDERED: Sodium Chloride For Inhalation 0.9% 3 ML NEB ONE (08:40)
[2019-05-26] MEDS ORDERED: Sodium Chloride 0.9% 10 ML ONE (08:40)
[2019-05-26] MEDS: Saccharomyces boulardii 250 MG CAP PO SCH (08:42)
[2019-05-26] MEDS: Loratadine 10 MG TAB PO SCH (08:42)
[2019-05-26] MEDS: Clopidogrel Bisulfate 75 MG TAB PO SCH (08:42)
[2019-05-26] MEDS: PARoxetine 20 MG TAB PO SCH (08:42)
[2019-05-26] MEDS: Famotidine 20 MG TAB PO SCH ×2 (08:43→20:56)
[2019-05-26] MEDS: Spironolactone 25 MG TAB PO SCH (08:43)
[2019-05-26] MEDS: Lisinopril 20 MG TAB PO SCH (08:43)
[2019-05-26] MEDS: Gabapentin 100 MG CAP PO SCH ×3 (08:43→20:56)
[2019-05-26] MEDS: Docusate 100 MG CAP PO SCH ×2 (08:44→20:56)
[2019-05-26] MEDS: Vancomycin HCl 750 MG in Sodium Chloride 0.9% 250 ML 250 ML IVPB SCH ×2 (08:49→20:54)
[2019-05-26] MEDS: Atorvastatin Calcium 40 MG TAB PO SCH (20:56)
[2019-05-26] MEDS: traZODone HCl 50 MG TAB PO SCH (20:56)
[2019-05-26] MEDS: Enoxaparin Sodium 30 MG/0.3 ML SYRINGE SC SCH (20:56)
[2019-05-26] MEDS: Sodium Chloride 0.9% 10 ML ONE (20:56)
[2019-05-26] MEDS: diphenhydrAMINE 25 MG CAP PO SCH (20:56)
[2019-05-27] MEDS: Amlodipine 5 MG TAB PO SCH (05:52)
[2019-05-27 08:18] LABS: Vancomycin, Trough 20.7 ug/mL
[2019-05-27] MEDS ORDERED: Sodium Chloride 0.9% 20 ML ONE (08:35)
[2019-05-27] MEDS: Vancomycin HCl 750 MG in Sodium Chloride 0.9% 250 ML 250 ML IVPB SCH ×2 (09:00→20:54)
--- NOTE | 2019-05-27 09:01 | PRG ---
DATE OF SERVICE: 05/26/2019 SUBJECTIVE: The patient feels well except for persistent itching. It is not associated with any rash, but is recurrent despite transient improvement with Benadryl. OBJECTIVE: VITAL SIGNS: Temperature is 97.6, pulse 64, respirations 20, O2 sats 93% on room air, and blood pressure is 144/65. Most recent vancomycin trough level therapeutic at 20.6 on 750 mg of vancomycin twice daily. LUNGS: Clear. CARDIAC: Shows regular rhythm. SKIN And EXTREMITIES: Show signs of excoriation, but no significant rash. ASSESSMENT: 1. Pruritus of unknown etiology, possibly due to drugs versus dry skin. 2. Hypertension, improved control on increased lisinopril and addition of Norvasc. 3. Methicillin-resistant Staphylococcus aureus bacteremia, resolving on vancomycin with therapeutic trough level on 750 twice daily. PLAN: Continue 750 twice daily. Repeat CBC and comprehensive metabolic in the a.m. Determine end of date of antibiotics. Job ID: [id number]
[2019-05-27] MEDS: Lisinopril 20 MG TAB PO SCH (09:03)
[2019-05-27] MEDS: Docusate 100 MG CAP PO SCH ×2 (09:08→20:55)
[2019-05-27] MEDS: Saccharomyces boulardii 250 MG CAP PO SCH (09:09)
[2019-05-27] MEDS: Spironolactone 25 MG TAB PO SCH (09:09)
[2019-05-27] MEDS: Gabapentin 100 MG CAP PO SCH ×3 (09:09→20:55)
[2019-05-27] MEDS: Loratadine 10 MG TAB PO SCH (09:09)
[2019-05-27] MEDS: PARoxetine 20 MG TAB PO SCH (09:10)
--- NOTE | 2019-05-27 09:13 | PRG ---
DATE OF SERVICE: 05/27/2019 SUBJECTIVE: The patient feels well with no complaints except for itching. She is working well with therapy and is about to be released from occupational therapy. She is completely independent. Family apparently has been in to see her, but have not discussed with prison about discharge as far as I know. OBJECTIVE: SKIN: Shows some signs of excoriation, but no rash. VITAL SIGNS: Show blood pressure 167/74, pulse 57. LUNGS: Clear. CARDIAC: Regular rhythm. ABDOMEN: Soft, nontender. ASSESSMENT: 1. Resolving methicillin-resistant Staphylococcus aureus bacteremia and endocarditis, on IV vancomycin with therapeutic levels, end date at least another 2 weeks, but we will determine in next several days. 2. Persistent pruritus over the last several days, possibly due to addition of amlodipine, but we will discontinue Lovenox and Pepcid and famotidine as the patient is doing well and maybe these are the cause. 3. Hypertension, controlled to goal on these medications. Job ID: [id number]
[2019-05-27] MEDS: Clopidogrel Bisulfate 75 MG TAB PO SCH (09:55)
[2019-05-27] MEDS: Sodium Chloride 0.9% 10 ML ONE (20:54)
[2019-05-27] MEDS: diphenhydrAMINE 25 MG CAP PO SCH (20:55)
[2019-05-27] MEDS: Atorvastatin Calcium 40 MG TAB PO SCH (20:55)
[2019-05-27] MEDS: traZODone HCl 50 MG TAB PO SCH (20:55)
[2019-05-28] MEDS: Amlodipine 5 MG TAB PO SCH (06:05)
[2019-05-28] MEDS: Spironolactone 25 MG TAB PO SCH (09:31)
[2019-05-28] MEDS: Clopidogrel Bisulfate 75 MG TAB PO SCH (09:31)
[2019-05-28] MEDS: Lisinopril 20 MG TAB PO SCH (09:31)
[2019-05-28] MEDS: Docusate 100 MG CAP PO SCH ×2 (09:31→20:26)
[2019-05-28] MEDS: Saccharomyces boulardii 250 MG CAP PO SCH (09:31)
[2019-05-28] MEDS: Loratadine 10 MG TAB PO SCH (09:32)
[2019-05-28] MEDS: PARoxetine 20 MG TAB PO SCH (09:32)
[2019-05-28] MEDS: Vancomycin HCl 750 MG in Sodium Chloride 0.9% 250 ML 250 ML IVPB SCH ×2 (09:32→20:26)
[2019-05-28] MEDS: Gabapentin 100 MG CAP PO SCH ×3 (09:32→20:26)
[2019-05-28] MEDS: Sodium Chloride 0.9% 10 ML ONE (09:32)
[2019-05-28] MEDS: diphenhydrAMINE 25 MG CAP PO SCH (20:26)
[2019-05-28] MEDS: Atorvastatin Calcium 40 MG TAB PO SCH (20:26)
[2019-05-28] MEDS: traZODone HCl 50 MG TAB PO SCH (20:26)
[2019-05-29] MEDS: Amlodipine 5 MG TAB PO SCH (05:59)
[2019-05-29 08:34] LABS: #Basophils 0.1 thou/uL (0.0-0.2); #Eosinphils 0.3 thou/uL (0.0-0.7); #Monocytes 0.5 thou/uL (0.11-0.59); #Neutrophils 3.9 thou/uL (1.40-6.50); %Basophils 1.1 % (0.0-1.0); %Eosinophils 5.6 % (0.0-10.0); %Lymphocytes 17.9 % (21.0-51.0); %Monocytes 7.9 % (0.0-10.0); %Neutrophils 67.6 % (42.0-75.0); Hemoglobin 10.1 g/dL (12.0-16.0); Mean Corpuscular HGB CONC 32.3 g/dL (32.0-36.0); Mean Corpuscular Hemoglobin 29.1 pg (27.0-31.0); Mean Corpuscular Volume 90.1 fL (78.0-98.0); Mean Platelet Volume 6.9 fL (7.4-10.4); Platelet Count 281 thou/uL (130-400); RBC Distribution Width 12.6 % (11.5-14.5); Red Blood Cell (RBC) Count 3.48 mill/uL (4.20-5.40); White Blood Cell (WBC) Count 5.7 thou/uL (4.8-10.8)
[2019-05-29 08:48] LABS: ALT (SGPT) 10 U/L (8-55); AST (SGOT) 10 U/L (5-34); Albumin 3.3 g/dL (3.4-4.8); Alkaline Phosphatase 46 U/L (40-110); Anion Gap 13 mmol/L (10-20); BUN (Urea Nitrogen) 19 mg/dL (9.8-20.1); Bilirubin, Total 0.3 mg/dL (0.2-1.2); Calc. Creatinine Clearance 50 mL/min (70-130); Calcium 8.3 mg/dL (7.8-10.44); Carbon Dioxide 24 mmol/L (23-31); Chloride 109 mmol/L (98-107); Estimated GFR-MDRD 74; Globulin 2.3 g/dL (2.4-3.5); Glucose 92 mg/dL (83-110); Potassium 4.1 mmol/L (3.5-5.1); Protein, Total 5.6 g/dL (6.0-8.3); Sodium 142 mmol/L (136-145)
[2019-05-29] MEDS: Gabapentin 100 MG CAP PO SCH ×3 (09:10→20:57)
[2019-05-29] MEDS: Saccharomyces boulardii 250 MG CAP PO SCH (09:10)
[2019-05-29] MEDS: Spironolactone 25 MG TAB PO SCH (09:10)
[2019-05-29] MEDS: Clopidogrel Bisulfate 75 MG TAB PO SCH (09:10)
[2019-05-29] MEDS: Docusate 100 MG CAP PO SCH ×2 (09:10→20:57)
[2019-05-29] MEDS: Loratadine 10 MG TAB PO SCH (09:10)
[2019-05-29] MEDS: Lisinopril 20 MG TAB PO SCH (09:10)
[2019-05-29] MEDS: PARoxetine 20 MG TAB PO SCH (09:11)
[2019-05-29] MEDS: Vancomycin HCl 750 MG in Sodium Chloride 0.9% 250 ML 250 ML IVPB SCH ×2 (09:11→20:57)
[2019-05-29] MEDS: diphenhydrAMINE 25 MG CAP PO SCH (20:57)
[2019-05-29] MEDS: Atorvastatin Calcium 40 MG TAB PO SCH (20:57)
[2019-05-29] MEDS: traZODone HCl 50 MG TAB PO SCH (20:57)
[2019-05-30] MEDS: Amlodipine 5 MG TAB PO SCH (06:13)
[2019-05-30 08:26] LABS: Vancomycin, Trough 21.1 ug/mL
[2019-05-30] MEDS: Vancomycin HCl 750 MG in Sodium Chloride 0.9% 250 ML 250 ML IVPB SCH ×2 (08:31→21:53)
[2019-05-30] MEDS: Lisinopril 20 MG TAB PO SCH (08:34)
[2019-05-30] MEDS: Clopidogrel Bisulfate 75 MG TAB PO SCH (08:34)
[2019-05-30] MEDS: Saccharomyces boulardii 250 MG CAP PO SCH (08:34)
[2019-05-30] MEDS: Gabapentin 100 MG CAP PO SCH ×3 (08:35→21:52)
[2019-05-30] MEDS: Spironolactone 25 MG TAB PO SCH (08:40)
[2019-05-30] MEDS: Docusate 100 MG CAP PO SCH ×2 (08:42→21:53)
[2019-05-30] MEDS: PARoxetine 20 MG TAB PO SCH (08:42)
[2019-05-30] MEDS: Loratadine 10 MG TAB PO SCH (08:42)
[2019-05-30] MEDS ORDERED: Sodium Chloride 0.9% 10 ML ONE (10:57)
[2019-05-30] MEDS: diphenhydrAMINE 25 MG CAP PO SCH (21:52)
[2019-05-30] MEDS: traZODone HCl 50 MG TAB PO SCH (21:53)
[2019-05-30] MEDS: Atorvastatin Calcium 40 MG TAB PO SCH (21:53)
[2019-05-31] MEDS: Amlodipine 5 MG TAB PO SCH (06:01)
[2019-05-31] MEDS: Vancomycin HCl 750 MG in Sodium Chloride 0.9% 250 ML 250 ML IVPB SCH ×2 (09:17→21:02)
[2019-05-31] MEDS: Sodium Chloride 0.9% 10 ML ONE (09:18)
[2019-05-31] MEDS: Docusate 100 MG CAP PO SCH ×2 (09:19→21:01)
[2019-05-31] MEDS: Gabapentin 100 MG CAP PO SCH ×3 (09:19→21:01)
[2019-05-31] MEDS: Spironolactone 25 MG TAB PO SCH (09:19)
[2019-05-31] MEDS: Clopidogrel Bisulfate 75 MG TAB PO SCH (09:19)
[2019-05-31] MEDS: Saccharomyces boulardii 250 MG CAP PO SCH (09:19)
[2019-05-31] MEDS: Loratadine 10 MG TAB PO SCH (09:19)
[2019-05-31] MEDS: Lisinopril 20 MG TAB PO SCH (09:19)
[2019-05-31] MEDS: PARoxetine 20 MG TAB PO SCH (09:20)
[2019-05-31] MEDS: diphenhydrAMINE 25 MG CAP PO SCH (21:01)
[2019-05-31] MEDS: Atorvastatin Calcium 40 MG TAB PO SCH (21:01)
[2019-05-31] MEDS: traZODone HCl 50 MG TAB PO SCH (21:01)
[2019-05-31] MEDS: Hydrocortisone 1% Cream 30 GM TUBE TOP PRN (21:52)
--- NOTE | 2019-05-31 22:18 | PRG ---
DATE OF SERVICE: 05/31/2019 SUBJECTIVE: The patient lying in bed, resting with only complaints of some mild rash on her groin treated with Benadryl. She is up ambulating the [place] with no difficulty. OBJECTIVE: VITAL SIGNS: Blood pressure 148/64, pulse 70, O2 sats 96% on room air. LUNGS: Clear. CARDIAC: Showed regular rhythm. ABDOMEN: Soft and nontender. ASSESSMENT: 1. 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 2. Stable dementia. 3. Improving deconditioning. 4. Stable hypertension, off amlodipine. PLAN: 1. Continue vancomycin until 06/06. 2. Arrange the patient to be placed in the [facility] or another facility. Job ID: [id number]
--- NOTE | 2019-05-31 22:21 | PRG ---
DATE OF SERVICE: 05/29/2019 SUBJECTIVE: The patient feels well with no complaints, asking about discharge plans. OBJECTIVE: VITAL SIGNS: Show temperature is 98.1, pulse 58, respirations 16, O2 saturation is 96% on room air, and blood pressure 129/59. LABORATORY DATA: Sodium 142, potassium 4.1, chloride 109, bicarb 24, BUN 19, creatinine 0.74, calcium 8.3, total bilirubin 0.3, AST 10, ALT 10, and albumin 3.3. ASSESSMENT: 1. Resolving methicillin-resistant Staphylococcus aureus endocarditis, on IV vancomycin therapeutic trough level to June 06. 2. Stable hypertension. 3. Stable dementia. 4. Improving deconditioning. PLAN: 1. Discharge planning. 2. Finish vancomycin on June 06. 3. Continue to monitor blood pressure. Off amlodipine. Job ID: [id number]
--- NOTE | 2019-05-31 22:31 | PRG ---
DATE OF SERVICE: 05/28/2019 SUBJECTIVE: The patient feels well. No complaints. Up in the [place], asking when she can be discharged home. OBJECTIVE: VITAL SIGNS: Shows temperature 97, pulse 59, respirations 18, O2 sats 95% on room air. LUNGS: Clear. CARDIAC: Regular rhythm. ABDOMEN: Soft, nontender. ASSESSMENT: 1. Resolving methicillin-resistant Staphylococcus aureus endocarditis. 2. on therapeutic vancomycin with therapeutic trough level of 20.7. 3. Stable dementia. 4. Stable hypertension. PLAN: 1. Continue PT, OT. 2. Continue IV vancomycin at a dose of 750 mg q.12. 3. Discuss discharge planning with family. Job ID: [id number]
[2019-06-01] MEDS: Amlodipine 5 MG TAB PO SCH (05:58)
--- NOTE | 2019-06-01 08:00 | PRG ---
DATE OF SERVICE: 05/30/2019 SUBJECTIVE: The patient feels well, lying in bed, only complaints of mild rash and is preparing for discharge home next week, antibiotics will be finished on June 06. Denying any chest pain or shortness of breath. OBJECTIVE: VITAL SIGNS: Shows temperature 96.9, pulse 70, respirations 20, O2 sats 97% on room air, and blood pressure 123/61. LUNGS: Clear. CARDIAC: Showed regular rhythm. ABDOMEN: Soft and nontender. SKIN/EXTREMITIES: Showed no edema. ASSESSMENT: 1. Resolving methicillin-resistant Staph bacteremia, endocarditis, on IV vancomycin until June 06. 2. Pruritus has resolved with discontinuation of amlodipine. 3. Hypertension, still controlled, to go off amlodipine. I will continue to monitor. Job ID: [id number]
[2019-06-01] MEDS: Docusate 100 MG CAP PO SCH ×2 (09:01→21:11)
[2019-06-01] MEDS: Loratadine 10 MG TAB PO SCH (09:01)
[2019-06-01] MEDS: Lisinopril 20 MG TAB PO SCH (09:01)
[2019-06-01] MEDS: Saccharomyces boulardii 250 MG CAP PO SCH (09:01)
[2019-06-01] MEDS: PARoxetine 20 MG TAB PO SCH (09:01)
[2019-06-01] MEDS: Clopidogrel Bisulfate 75 MG TAB PO SCH (09:01)
[2019-06-01] MEDS: Gabapentin 100 MG CAP PO SCH ×3 (09:02→21:11)
[2019-06-01] MEDS: Spironolactone 25 MG TAB PO SCH (09:02)
[2019-06-01] MEDS: Vancomycin HCl 750 MG in Sodium Chloride 0.9% 250 ML 250 ML IVPB SCH ×2 (09:02→21:10)
[2019-06-01] MEDS: Sodium Chloride 0.9% 10 ML ONE (09:04)
--- NOTE | 2019-06-01 20:43 | PRG ---
DATE OF SERVICE: 06/01/2019 SUBJECTIVE: The patient feels well. No complaints of shortness of breath, chest pain, fever, or chills; is up in the room, asking about discharge planning. OBJECTIVE: Shows, VITAL SIGNS: Temperature 96.8, pulse 62, respirations 20, O2 sats 97% on room air, blood pressure 120/58. LUNGS: Clear. CARDIAC: Showed regular rhythm. ABDOMEN: Soft and nontender. SKIN/EXTREMITIES: Displayed no edema, clubbing, or cyanosis. ASSESSMENT: 1. Resolving methicillin-resistant Staph endocarditis, on IV vancomycin, therapeutic trough levels until June 06. 2. Stable hypertension. 3. Stable dementia. 4. Improving deconditioning. PLAN: Continue vancomycin until June 06. Continue to monitor vital signs and blood pressure off amlodipine. Discharge planning ongoing with family at this time. Job ID: [id number]
[2019-06-01] MEDS: Hydrocortisone 1% Cream 30 GM TUBE TOP PRN (21:10)
[2019-06-01] MEDS: Atorvastatin Calcium 40 MG TAB PO SCH (21:11)
[2019-06-01] MEDS: diphenhydrAMINE 25 MG CAP PO SCH (21:11)
[2019-06-01] MEDS: traZODone HCl 50 MG TAB PO SCH (21:11)
[2019-06-02] MEDS: Amlodipine 5 MG TAB PO SCH (05:44)
[2019-06-02] MEDS ORDERED: Sodium Chloride 0.9% 10 ML ONE (07:37)
[2019-06-02] MEDS: Spironolactone 25 MG TAB PO SCH (08:46)
[2019-06-02] MEDS: Gabapentin 100 MG CAP PO SCH ×3 (08:46→21:26)
[2019-06-02] MEDS: Loratadine 10 MG TAB PO SCH (08:46)
[2019-06-02] MEDS: Saccharomyces boulardii 250 MG CAP PO SCH (08:47)
[2019-06-02] MEDS: Docusate 100 MG CAP PO SCH ×2 (08:47→21:26)
[2019-06-02] MEDS: PARoxetine 20 MG TAB PO SCH (08:47)
[2019-06-02] MEDS: Lisinopril 20 MG TAB PO SCH (08:47)
[2019-06-02] MEDS: Clopidogrel Bisulfate 75 MG TAB PO SCH (08:47)
[2019-06-02] MEDS: Vancomycin HCl 750 MG in Sodium Chloride 0.9% 250 ML 250 ML IVPB SCH ×2 (08:48→21:26)
[2019-06-02] MEDS: traZODone HCl 50 MG TAB PO SCH (21:26)
[2019-06-02] MEDS: diphenhydrAMINE 25 MG CAP PO SCH (21:26)
[2019-06-02] MEDS: Atorvastatin Calcium 40 MG TAB PO SCH (21:26)
[2019-06-03] MEDS: Amlodipine 5 MG TAB PO SCH (05:48)
--- NOTE | 2019-06-03 07:17 | PRG ---
DATE OF SERVICE: 06/02/2019 SUBJECTIVE: The patient feels well with no shortness of breath, chest pain, or confusion and states she is ready to go to further rehab or possibly home. However, family states they left a phone call that they could not possibly afford the [facility] and we will discuss with them tomorrow. The patient is due to finish with her antibiotics on June 06. OBJECTIVE: VITAL SIGNS: Show temperature is 96.9, pulse 59, respirations 18, O2 sats 96% on room air, and blood pressure 136/64. LUNGS: Clear. CARDIAC: Showed regular rhythm. ABDOMEN: Soft and nontender. SKIN AND EXTREMITIES: Showed no edema. ASSESSMENT: 1. Resolving methicillin-resistant Staph bacteremia with possible endocarditis, on IV vancomycin with therapeutic trough levels, course to finish on June 06. 2. Deconditioning, improved greatly as the patient is ambulating well with therapy safely. 3. Hypertension, controlled to goal. 4. Dementia, stable. PLAN: 1. Discuss discharge planning with family. 2. Finish antibiotics on June 06 and discharge either to the home or the [facility]dc. Job ID: [id number]
[2019-06-03] MEDS: Vancomycin HCl 750 MG in Sodium Chloride 0.9% 250 ML 250 ML IVPB SCH ×2 (08:57→21:05)
[2019-06-03] MEDS: PARoxetine 20 MG TAB PO SCH (08:58)
[2019-06-03] MEDS: Lisinopril 20 MG TAB PO SCH (08:58)
[2019-06-03] MEDS: Saccharomyces boulardii 250 MG CAP PO SCH (08:58)
[2019-06-03] MEDS: Loratadine 10 MG TAB PO SCH (08:58)
[2019-06-03] MEDS: Clopidogrel Bisulfate 75 MG TAB PO SCH (08:58)
[2019-06-03] MEDS: Gabapentin 100 MG CAP PO SCH ×3 (08:58→21:06)
[2019-06-03] MEDS: Spironolactone 25 MG TAB PO SCH (08:58)
[2019-06-03] MEDS: Docusate 100 MG CAP PO SCH ×2 (08:58→21:06)
[2019-06-03] MEDS: Hydrocortisone 1% Cream 30 GM TUBE TOP PRN (09:02)
[2019-06-03] MEDS: diphenhydrAMINE 25 MG CAP PO SCH (21:05)
[2019-06-03] MEDS: Atorvastatin Calcium 40 MG TAB PO SCH (21:06)
[2019-06-03] MEDS: traZODone HCl 50 MG TAB PO SCH (21:06)
--- NOTE | 2019-06-03 21:16 | PRG ---
DATE OF SERVICE: 06/03/2019 SUBJECTIVE: The patient feels well, walking in the [place], independent. No complaints of shortness of breath or chest pain. OBJECTIVE: VITAL SIGNS: Show temperature 98, pulse 78, respirations 20, O2 sat is 99% on room air, and blood pressure is 116/54, up to 174/72. LUNGS: Clear. CARDIAC: Showed regular rhythm. ABDOMEN: Soft, nontender. ASSESSMENT: 1. 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 2. Stable dementia. 3. Labile hypertension. 4. Improving deconditioning. PLAN: 1. Continue vancomycin until June 06. 2. Repeat CBC, basic metabolic profile, vancomycin trough level in the a.m. Job ID: [id number]
[2019-06-04] MEDS: Amlodipine 5 MG TAB PO SCH (05:53)
[2019-06-04] MEDS ORDERED: Sodium Chloride 0.9% 20 ML ONE (07:43)
[2019-06-04] MEDS: Vancomycin HCl 750 MG in Sodium Chloride 0.9% 250 ML 250 ML IVPB SCH ×2 (08:32→20:49)
[2019-06-04 08:33] LABS: Vancomycin, Trough 20.2 ug/mL
[2019-06-04] MEDS: Loratadine 10 MG TAB PO SCH (08:34)
[2019-06-04] MEDS: PARoxetine 20 MG TAB PO SCH (08:34)
[2019-06-04] MEDS: Saccharomyces boulardii 250 MG CAP PO SCH (08:34)
[2019-06-04] MEDS: Spironolactone 25 MG TAB PO SCH (08:34)
[2019-06-04] MEDS: Clopidogrel Bisulfate 75 MG TAB PO SCH (08:34)
[2019-06-04] MEDS: Docusate 100 MG CAP PO SCH ×2 (08:35→20:50)
[2019-06-04] MEDS: Lisinopril 20 MG TAB PO SCH (08:35)
[2019-06-04] MEDS: Gabapentin 100 MG CAP PO SCH ×3 (08:35→20:50)
[2019-06-04 08:50] LABS: ALT (SGPT) 10 U/L (8-55); AST (SGOT) 14 U/L (5-34); Albumin 2.9 g/dL (3.4-4.8); Alkaline Phosphatase 45 U/L (40-110); Anion Gap 16 mmol/L (10-20); BUN (Urea Nitrogen) 17 mg/dL (9.8-20.1); Bilirubin, Total 0.2 mg/dL (0.2-1.2); Calc. Creatinine Clearance 49 mL/min (70-130); Calcium 8.3 mg/dL (7.8-10.44); Carbon Dioxide 16 mmol/L (23-31); Chloride 113 mmol/L (98-107); Estimated GFR-MDRD 72; Globulin 2.5 g/dL (2.4-3.5); Glucose 88 mg/dL (83-110); Potassium 4.4 mmol/L (3.5-5.1); Protein, Total 5.4 g/dL (6.0-8.3); Sodium 141 mmol/L (136-145)
[2019-06-04 09:05] LABS: #Basophils 0.1 thou/uL (0.0-0.2); #Eosinphils 0.4 thou/uL (0.0-0.7); #Lymphocytes 1.3 thou/uL (1.20-3.40); #Monocytes 0.5 thou/uL (0.11-0.59); #Neutrophils 4.6 thou/uL (1.40-6.50); %Basophils 0.9 % (0.0-1.0); %Eosinophils 5.8 % (0.0-10.0); %Lymphocytes 18.8 % (21.0-51.0); %Monocytes 6.8 % (0.0-10.0); %Neutrophils 67.6 % (42.0-75.0); Hemoglobin 10.3 g/dL (12.0-16.0); Mean Corpuscular HGB CONC 32.4 g/dL (32.0-36.0); Mean Corpuscular Hemoglobin 29.6 pg (27.0-31.0); Mean Corpuscular Volume 91.5 fL (78.0-98.0); Mean Platelet Volume 6.6 fL (7.4-10.4); Platelet Count 285 thou/uL (130-400); Red Blood Cell (RBC) Count 3.47 mill/uL (4.20-5.40); White Blood Cell (WBC) Count 6.8 thou/uL (4.8-10.8)
[2019-06-04] MEDS: Atorvastatin Calcium 40 MG TAB PO SCH (20:50)
[2019-06-04] MEDS: diphenhydrAMINE 25 MG CAP PO SCH (20:50)
[2019-06-04] MEDS: traZODone HCl 50 MG TAB PO SCH (20:50)
[2019-06-05] MEDS: Amlodipine 5 MG TAB PO SCH (06:10)
[2019-06-05] MEDS: Loratadine 10 MG TAB PO SCH (08:48)
[2019-06-05] MEDS: Gabapentin 100 MG CAP PO SCH ×3 (08:48→20:51)
[2019-06-05] MEDS: Clopidogrel Bisulfate 75 MG TAB PO SCH (08:48)
[2019-06-05] MEDS: Spironolactone 25 MG TAB PO SCH (08:49)
[2019-06-05] MEDS: PARoxetine 20 MG TAB PO SCH (08:49)
[2019-06-05] MEDS: Saccharomyces boulardii 250 MG CAP PO SCH (08:49)
[2019-06-05] MEDS: Docusate 100 MG CAP PO SCH ×2 (08:49→20:51)
[2019-06-05] MEDS: Vancomycin HCl 750 MG in Sodium Chloride 0.9% 250 ML 250 ML IVPB SCH ×2 (08:49→20:50)
[2019-06-05] MEDS: Lisinopril 20 MG TAB PO SCH (08:52)
[2019-06-05] MEDS: Hydrocortisone 1% Cream 30 GM TUBE TOP PRN (14:17)
[2019-06-05] MEDS: Atorvastatin Calcium 40 MG TAB PO SCH (20:51)
[2019-06-05] MEDS: diphenhydrAMINE 25 MG CAP PO SCH (20:51)
[2019-06-05] MEDS: traZODone HCl 50 MG TAB PO SCH (20:51)
[2019-06-06] MEDS: Amlodipine 5 MG TAB PO SCH (05:33)
[2019-06-06] MEDS: Saccharomyces boulardii 250 MG CAP PO SCH (09:19)
[2019-06-06] MEDS: Gabapentin 100 MG CAP PO SCH ×3 (09:19→20:24)
[2019-06-06] MEDS: Docusate 100 MG CAP PO SCH ×2 (09:20→20:24)
[2019-06-06] MEDS: Spironolactone 25 MG TAB PO SCH (09:20)
[2019-06-06] MEDS: Clopidogrel Bisulfate 75 MG TAB PO SCH (09:20)
[2019-06-06] MEDS: Loratadine 10 MG TAB PO SCH (09:20)
[2019-06-06] MEDS: Lisinopril 20 MG TAB PO SCH (09:20)
[2019-06-06] MEDS: Vancomycin HCl 750 MG in Sodium Chloride 0.9% 250 ML 250 ML IVPB SCH ×2 (09:25→20:23)
[2019-06-06] MEDS: PARoxetine 20 MG TAB PO SCH (09:31)
[2019-06-06] MEDS: Atorvastatin Calcium 40 MG TAB PO SCH (20:24)
[2019-06-06] MEDS: diphenhydrAMINE 25 MG CAP PO SCH (20:24)
[2019-06-06] MEDS: traZODone HCl 50 MG TAB PO SCH (20:24)
[2019-06-07] MEDS: Amlodipine 5 MG TAB PO SCH (06:18)
[2019-06-07] MEDS: PARoxetine 20 MG TAB PO SCH (08:46)
[2019-06-07] MEDS: Spironolactone 25 MG TAB PO SCH (08:46)
[2019-06-07] MEDS: Saccharomyces boulardii 250 MG CAP PO SCH (08:46)
[2019-06-07] MEDS: Gabapentin 100 MG CAP PO SCH ×3 (08:46→20:39)
[2019-06-07] MEDS: Loratadine 10 MG TAB PO SCH (08:47)
[2019-06-07] MEDS: Lisinopril 20 MG TAB PO SCH (08:47)
[2019-06-07] MEDS: Clopidogrel Bisulfate 75 MG TAB PO SCH (08:47)
[2019-06-07] MEDS: Docusate 100 MG CAP PO SCH ×2 (08:47→20:40)
[2019-06-07] MEDS: Vancomycin HCl 750 MG in Sodium Chloride 0.9% 250 ML 250 ML IVPB SCH (08:52)
--- NOTE | 2019-06-07 09:19 | PRG ---
DATE OF SERVICE: 06/06/2019 SUBJECTIVE: The patient feels well. No complaints. [facility]. OBJECTIVE: VITAL SIGNS: Blood pressure is 129/60, pulse 62, and O2 sat is 98% on room air. LUNGS: Clear. CARDIAC: Regular rate and rhythm. ABDOMEN: Soft and nontender. SKIN/EXTREMITIES: Display no edema, clubbing, or cyanosis. ASSESSMENT: 1. 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 2. Stable dementia. 3. Resolving deconditioning. 4. Controlled seizure disorder. PLAN: 1. Finish vancomycin on June 06. 2. Continue to monitor blood pressure. 3. Continue DVT prophylaxis. Job ID: [id number]
--- NOTE | 2019-06-07 09:23 | PRG ---
DATE OF SERVICE: 06/04/2019 SUBJECTIVE: The patient feels well, up in the room, visiting with daughters who have been talking to [facility] about placement. The patient agrees to further therapy. OBJECTIVE: VITAL SIGNS: Blood pressure is 96.6, pulse 63, respirations 18, O2 sat is 98% on room air, and blood pressure 117/59. LUNGS: Clear. CARDIAC: Showed regular rate and rhythm. ABDOMEN: Soft and nontender. SKIN/EXTREMITIES: Display no edema, clubbing, or cyanosis. LABORATORY: Shows white count of 6800, hematocrit 31, and hemoglobin 10. Sodium is 141, potassium 4.4, chloride 113, bicarbonate 16, protein 5.4, and albumin 2.9. ASSESSMENT: 1. Resolving methicillin-resistant Staphylococcus aureus bacteremia and presumed endocarditis with vegetation seen on echocardiogram. 2. Dementia, stable, but unable to maintain ADLs without assistance. 3. Hypertension, labile, but controlled on increased lisinopril 20 mg daily. 4. Deconditioning, resolving daily and ambulating in the [place]. PLAN: 1. Continue vancomycin until June 07. 2. Arrange for unskilled nursing facility and afterwards fpc facility. 3. Continue PT/OT until discharge. Job ID: [id number]
--- NOTE | 2019-06-07 09:33 | PRG ---
DATE OF SERVICE: 06/05/2019 SUBJECTIVE: Patient lying in bed with no complaints of chest pain, shortness of breath. The family has called and stated she is approved for the correction on Sunday, June 08, with antibiotic to be finished on the night of June 06. OBJECTIVE: VITAL SIGNS: Blood pressure is 157/70, pulse 62, O2 saturations 98%. LUNGS: Clear. CARDIAC: Regular rhythm. ABDOMEN: Soft and nontender. ASSESSMENT: 1. 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 Continue IV vancomycin until June 06 with therapeutic levels have been obtained for the last week. 2. Labile hypertension, still slightly uncontrolled. 3. Deconditioning resolved. 4. Dementia, stable. 5. Seizure prophylaxis, no recurrence. PLAN: 1. Finishing antibiotics. 2. Transfer to [facility]. 3. Continue to monitor blood pressure. 4. Check BMP next week after spironolactone is discontinued because of recent decreased bicarb. Job ID: [id number]
[2019-06-07] MEDS: Hydrocortisone 1% Cream 30 GM TUBE TOP PRN (15:28)
--- NOTE | 2019-06-07 17:21 | PRG ---
DATE OF SERVICE: 06/07/2019 SUBJECTIVE: Ms. Morrison is resting in bed. She denies any complaints. No family at bedside. Tolerating her antibiotics. She states that she is being discharged on Sunday. OBJECTIVE: VITAL SIGNS: She is afebrile, heart rate 65, respirations 16, oxygen saturation 95% on room air, blood pressure 149/65. CARDIOVASCULAR SYSTEM: S1 and S2 plus. RESPIRATORY SYSTEM: Normal vesicular breath sounds. ABDOMEN: Soft and nontender. Bowel sounds heard in all quadrants. EXTREMITIES: Without cyanosis or clubbing. IMPRESSION: 1. Endocarditis with methicillin-resistant Staphylococcus aureus. 2. Dyslipidemia. 3. Coronary artery disease. 4. Chronic systolic congestive heart failure. 5. Dementia. 6. Improving deconditioning. PLAN: 1. Continue current medications. 2. Heart healthy diet. 3. DVT prophylaxis. 4. Decubitus precautions. 5. Discharge planning. 6. Physical therapy. 7. Routine laboratory values. Job ID: [id number]
[2019-06-07 19:30] VITALS: BMI 25.4
[2019-06-07] MEDS: Atorvastatin Calcium 40 MG TAB PO SCH (20:39)
[2019-06-07] MEDS: traZODone HCl 50 MG TAB PO SCH (20:39)
[2019-06-07] MEDS: diphenhydrAMINE 25 MG CAP PO SCH (20:39)
[2019-06-08] MEDS: Amlodipine 5 MG TAB PO SCH (05:49)
[2019-06-08] MEDS: Saccharomyces boulardii 250 MG CAP PO SCH (08:42)
[2019-06-08] MEDS: Docusate 100 MG CAP PO SCH ×2 (08:42→21:10)
[2019-06-08] MEDS: Loratadine 10 MG TAB PO SCH (08:43)
[2019-06-08] MEDS: Lisinopril 20 MG TAB PO SCH (08:43)
[2019-06-08] MEDS: PARoxetine 20 MG TAB PO SCH (08:43)
[2019-06-08] MEDS: Gabapentin 100 MG CAP PO SCH ×3 (08:43→21:10)
[2019-06-08] MEDS: Clopidogrel Bisulfate 75 MG TAB PO SCH (08:43)
--- NOTE | 2019-06-08 16:13 | PRG ---
DATE OF SERVICE: 06/08/2019 SUBJECTIVE: Ms. Morrison is resting in bed. She denies any complaints. She has done with her antibiotics. [facility]. No family at bedside. OBJECTIVE: VITAL SIGNS: She is afebrile. Heart rate 63, respirations 18, oxygen saturation 98% on room air, blood pressure 131/60. CARDIOVASCULAR: S1-S2 plus. RESPIRATORY: Normal vesicular breath sounds. ABDOMEN: Soft and nontender. Bowel sounds heard in all quadrants. EXTREMITIES: Without cyanosis or clubbing. IMPRESSION: 1. Endocarditis with methicillin-resistant Staphylococcus aureus. She has done with her antibiotic regimen. 2. Dyslipidemia. 3. Coronary artery disease without angina. 4. Chronic systolic congestive heart failure, well compensated. 5. Dementia, stable. 6. Deconditioning, much improved. PLAN: 1. Continue current medications. 2. Heart healthy diet. 3. DVT prophylaxis. 4. Decubitus precautions. 5. Discharge tomorrow. Apparently, [facility]. 6. Dr. Elvin rudolph [facility]. Job ID: [id number]
[2019-06-08] MEDS: diphenhydrAMINE 25 MG CAP PO SCH (21:10)
[2019-06-08] MEDS: traZODone HCl 50 MG TAB PO SCH (21:10)
[2019-06-08] MEDS: Atorvastatin Calcium 40 MG TAB PO SCH (21:10)
[2019-06-09] MEDS: Amlodipine 5 MG TAB PO SCH (05:57)
[2019-06-09 06:24] LABS: Anion Gap 15 mmol/L (10-20); BUN (Urea Nitrogen) 17 mg/dL (9.8-20.1); Calc. Creatinine Clearance 48 mL/min (70-130); Calcium 8.3 mg/dL (7.8-10.44); Carbon Dioxide 20 mmol/L (23-31); Chloride 112 mmol/L (98-107); Estimated GFR-MDRD 68; Glucose 86 mg/dL (83-110); Potassium 3.8 mmol/L (3.5-5.1); Sodium 143 mmol/L (136-145)
[2019-06-09] MEDS: Clopidogrel Bisulfate 75 MG TAB PO SCH (09:43)
[2019-06-09] MEDS: Saccharomyces boulardii 250 MG CAP PO SCH (09:43)
[2019-06-09] MEDS: PARoxetine 20 MG TAB PO SCH (09:44)
[2019-06-09] MEDS: Docusate 100 MG CAP PO SCH (09:44)
[2019-06-09] MEDS: Loratadine 10 MG TAB PO SCH (09:44)
[2019-06-09] MEDS: Gabapentin 100 MG CAP PO SCH ×2 (09:45→15:22)
[2019-06-09] MEDS: Lisinopril 20 MG TAB PO SCH (09:46)
[2019-06-09 16:35] VITALS: BP 113/57; TEMP 98.5
--- NOTE | 2019-06-11 09:51 | PQF ---
Charity Morrison POLLACHI MD [id number] CLINICAL DOCUMENTATION CLARIFICATION FORM: POST DISCHARGE Addendum to original discharge summary date: ____ Late entry note date: __ Not sure why this was sent to me, she is Dr. Oconnor's patient, I was covering on the weekend. DATE: 06/11/2019 ATTN: AYANNA CELESTIN MD Please exercise your independent, professional judgment in responding to the clarification form. Clinical indicators are provided on the bottom of this form for your review Please check appropriate box(es): [ ] Sepsis due to: (Pna, UTI, gangrenous gall bladder, etc.) Due to: [ ] Device (please specify) [ ] Implant [ ] Graft [ ] Infusion [ ] SIRS due to non-infectious process (please specify etiology) [ ] with organ dysfunction [ ] without organ dysfunction [ ] Severe sepsis with acute organ dysfunction of: (Examples: respiratory failure, encephalopathy, acute kidney failure, other) [ ] Septic Shock [ ] Localized infection without sepsis [ ] Other diagnosis [ ] Unable to determine In addition, please specify: Present on Admission (POA): [ ] Yes [ ] No [ ] Unable to determine For continuity of documentation, please document condition throughout progress notes and discharge summary. Thank You. CLINICAL INDICATORS - SIGNS / SYMPTOMS / LABS - Methicillin-resistant staphylococcus aureus bacteremia with aortic vegetation on a well decreased EF 45%, being treated for an endocarditis- Progress note, , Elvin Farr MD - WBC: 5.2 on 05/14, 2.24L on 05/19- Laboratory report - Temp: 97.9F on 05/14, 97.3L on 05/15-Vital signs - Pulse: 57L on 05/22- Vital signs RISK FACTORS - Endocarditis- H&P, 05/14, Elvin Farr MD TREATMENTS: - Vancomycin.IV- MAY, 05/14 (This form is maintained as a part of the permanent medical record) 2015 [employer]. All Rights Reserved [employer] Reports Winform [email or web address]
--- NOTE | 2019-06-12 22:55 | PQF ---
Charity Morrison LUKE MD [id number] CLINICAL DOCUMENTATION CLARIFICATION FORM: POST DISCHARGE Addendum to original discharge summary date: ____ Late entry note date: __ DATE: 06/12/2019 ATTN: TEO MCALLISTER MD Please exercise your independent, professional judgment in responding to the clarification form. Clinical indicators are provided on the bottom of this form for your review Please check appropriate box(es): [ ] Sepsis due to: (Pna, UTI, gangrenous gall bladder, etc.) Due to: [ ] Device (please specify) [ ] Implant [ ] Graft [ ] Infusion [ ] SIRS due to non-infectious process (please specify etiology) [ ] with organ dysfunction [ ] without organ dysfunction [ x] Severe sepsis with acute organ dysfunction of: endocarditis and chf__ (Examples: respiratory failure, encephalopathy, acute kidney failure, other) [ ] Septic Shock [ ] Localized infection without sepsis [ ] Other diagnosis [ ] Unable to determine In addition, please specify: Present on Admission (POA): [ x ] Yes [ ] No [ ] Unable to determine For continuity of documentation, please document condition throughout progress notes and discharge summary. Thank You. 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 All Rights Reserved Chelsea [email or web address]
== END 2019-06-09 17:39 | DRG 871 ==
LOC: NAV ACUTE 18:19
PROVIDERS: ADMIT Internal Medicine; ATTEND Internal Medicine
DX: A41.9 Sepsis, unspecified organism (principal); I33.0 Acute and subacute infective endocarditis; I50.22 Chronic systolic (congestive) heart failure; R65.20 Severe sepsis without septic shock; F03.90 Unspecified dementia, unspecified severity, without behavioral disturbance, psychotic disturbance, mood disturbance, and anxiety; R00.1 Bradycardia, unspecified; R19.7 Diarrhea, unspecified; I95.9 Hypotension, unspecified; I11.0 Hypertensive heart disease with heart failure; K59.00 Constipation, unspecified; R53.81 Other malaise; I25.10 Atherosclerotic heart disease of native coronary artery without angina pectoris; G40.909 Epilepsy, unspecified, not intractable, without status epilepticus; E78.5 Hyperlipidemia, unspecified; B95.62 Methicillin resistant Staphylococcus aureus infection as the cause of diseases classified elsewhere; I44.7 Left bundle-branch block, unspecified; Z88.0 Allergy status to penicillin; Z88.2 Allergy status to sulfonamides
CPT/HCPCS: 36415; 80048; 80053; 80202; 85025; J1650; J3370; J3490; J7050; Q0163